=== PATIENT | male | born 2005 | race Caucasian/White ===

== ENCOUNTER 2025-08-12 07:21 | Day surgery (SDC) | payer OTHER ==
[~2025-08-12] VITALS: Ht 180.3 cm; Wt 84.4 kg
[~2025-08-12 07:21] MED LIST: AMOX875T2 PO
[2025-08-12] MEDS: LR 1,000 ML IV SCH (08:06)
[2025-08-12] MEDS ORDERED: LIDOCAINE 2% 100 MG/5 ML SDV (FOR ANES.) As Ordered ONE (08:25)
[2025-08-12] MEDS ORDERED: dexAMETHasone 4 MG/ML 1 ML VIAL As Ordered ONE (08:25)
[2025-08-12] MEDS ORDERED: ONDANSETRON 4MG 2ML VIAL As Ordered ONE (08:25)
[2025-08-12] MEDS ORDERED: ACETAMINOPHEN 1000MG/100ML IV BAG As Ordered ONE (08:25)
[2025-08-12] MEDS ORDERED: MIDAZOLAM INJ 2 MG/2 ML VIAL As Ordered ONE (08:26)
[2025-08-12] MEDS: LIDOCAINE 1% SDV 30 ML VIAL As Ordered ONE (09:01)
[2025-08-12] MEDS: ceFAZolin SODIUM 2 GM in DEXTROSE 5% (D5W) ADV/MINI-BAG 50 ML IV ONE (09:17)
[2025-08-12] MEDS ORDERED: KETOROLAC 30 MG/ML 1 ML VIAL As Ordered ONE (09:23)
[2025-08-12] MEDS ORDERED: LR 1,000 ML IV SCH (10:05)
[2025-08-12] MEDS: ONDANSETRON 4MG 2ML VIAL IV PRN (10:40)
[2025-08-12] MEDS: HYDROMORPHONE HCL 0.5 MG/0.5 ML SYRINGE IV PRN (10:40)
[2025-08-12 11:50] VITALS: BP 137/74; TEMP 96.6; O2SAT 98
== END 2025-08-12 11:55 | disposition home or self-care (01) ==
LOC: M SDC 07:21
PROVIDERS: ATTEND Orthopaedic Surgery Hand Surgery
DX: S66.325A Laceration of extensor muscle, fascia and tendon of left ring finger at wrist and hand level, initial encounter (principal); S66.327A Laceration of extensor muscle, fascia and tendon of left little finger at wrist and hand level, initial encounter; S61.217A Laceration without foreign body of left little finger without damage to nail, initial encounter; S61.215A Laceration without foreign body of left ring finger without damage to nail, initial encounter; W31.2XXA Contact with powered woodworking and forming machines, initial encounter; Y93.89 Activity, other specified; Y92.9 Unspecified place or not applicable
CPT/HCPCS: 26410; 76000; J0131; J0665; J0688; J1100; J1171; J1885; J2250; J2405; J3010